=== PATIENT | male | born 1990 | race American Indian/Alaskan Native ===

== ENCOUNTER 2018-04-08 10:49 | Emergency (ER) | payer MEDICAID ==
[~2018-04-08] VITALS: Ht 185.4 cm; Wt 150.0 kg
[2018-04-08] MEDS ORDERED: BENZ-16 PO (12:38)
[2018-04-08 12:58] VITALS: BP 137/86
== END 2018-04-08 13:01 | disposition home or self-care (01) ==
LOC: ER 10:50
DX: B34.9 Viral infection, unspecified (principal); Z79.899 Other long term (current) drug therapy
CPT/HCPCS: 71046; 99284